=== PATIENT | female | born 1965 | race Caucasian/White ===

== ENCOUNTER → 2017-07-19 | Outpatient (CLI) | payer BC ==
[~2017-07-19] MED LIST: ADVIN25050 INH; ASPI1TAB48 PO; HYDR-1838 PO; LEVA1.258 INH; LEVAAER2 INH; LEVO-18 PO; LPT/40 PO; TRAM-10 PO; [UNRECOGNIZED DRUG - CODE] PO
--- NOTE | 2017-07-19 14:43 | DIAGNOSTIC IMAGING REPORT ---
TWO VIEW CHEST CLINICAL HISTORY: Bronchitis. FINDINGS: PA and lateral chest radiographs are compared to study dated 11/27/2013 and correlated with chest CT dated 11/25/2013. The cardiomediastinal silhouette is unremarkable. Emphysema and chronic interstitial thickening are similar to previous. No airspace consolidation is identified typical for pneumonia and there is no pleural effusion. Atelectasis is noted at the left lung base. There is no pneumothorax. The skeletal structures are osteopenic. The bony thorax appears intact. IMPRESSION: Emphysema with no active disease in the chest. Electronically signed by: Juancarlos Freedman M.D. 07/19/2017 2:41 PM Dictated Date/Time: 07/19/2017 2:40 PM
== END | disposition home or self-care (01) ==
LOC: C.RAD1850 14:19
PROVIDERS: ATTEND Physician Assistant
DX: J40 Bronchitis, not specified as acute or chronic (principal); J43.9 Emphysema, unspecified